=== PATIENT | female | born 1955 | race Caucasian/White ===

== ENCOUNTER 2017-09-12 07:49 | Inpatient (IN) | payer OTHER ==
[~2017-09-12] VITALS: Ht 165.1 cm; Wt 57.6 kg
[2017-09-12 07:55] VITALS: BP 109/60
--- NOTE | 2017-09-12 08:07 | NUR ---
PATIENT PRESENTS TO ED C/O NEAR SYNCOPE, STATED SUDDEN ONSET OF DIZZINESS WHILE IN SHOWER, BRACED FALL USING TOILETTE. PT WITH LACERATION TO LEFT WRIST. DENIES N/V/D; SKIN IS PINK/WARM/DRY; AAOX4. LUNGS CLEAR BL; HR EVEN AND REGULAR; PT DENIES ANY FEVER, CP, SOB, OR COUGH AT THIS TIME; PATIENT STATES PAIN OF 4/10 AT THIS TIME; VSS; PATIENT POSITIONED FOR COMFORT; HOB ELEVATED; BEDRAILS UP X2; BED DOWN. ER MD MADE AWARE OF PT STATUS.
[2017-09-12] MEDS ORDERED: ONDANSETRON 4 MG/2 ML VIAL IVP ONE (08:25)
--- NOTE | 2017-09-12 08:50 | NUR ---
PT TO CT
[2017-09-12 08:57] LABS: BASOPHILS % (AUTO) 0.4 % (0.0-2.0); EOSINOPHILS # (AUTO) 0.1 K/uL (0-0.4); EOSINOPHILS % (AUTO) 0.7 % (0.0-4.0); HEMATOCRIT 44.6 % (36-48); HEMOGLOBIN 14.8 g/dL (12.0-16.0); LYMPHOCYTES # (AUTO) 0.3 K/uL (2.5-16.5); LYMPHOCYTES % (AUTO) 2.8 % (20.5-51.1); MEAN CORPUSCULAR HEMOGLOBIN 31 pg (27-31); MEAN CORPUSCULAR HGB CONC 33 g/dL (33-37); MEAN CORPUSCULAR VOLUME 92.4 fL (80-94); MONOCYTES # (AUTO) 0.4 K/uL (0.8-1.0); MONOCYTES % (AUTO) 3.5 % (1.7-9.3); NEUTROPHILS # (AUTO) 10.5 K/uL (1.8-7.7); NEUTROPHILS % (AUTO) 92.6 % (42.2-75.2); PLATELET COUNT (AUTO) 277 K/uL (140-450); RED BLOOD CELL COUNT(AUTO) 4.83 MIL/uL (4.20-5.40); RED CELL DISTRIBUTION WIDTH 12.6 % (11.6-13.7); WHITE BLOOD COUNT (AUTO) 11.3 K/uL (4.8-10.8)
[2017-09-12 09:01] LABS: APPEARANCE,URINE CLEAR (CLEAR); BILIRUBIN,URINE NEGATIVE (NEGATIVE); BLOOD, URINE NEGATIVE (NEGATIVE); COLOR,URINE YELLOW (YELLOW); LEUKOCYTE ESTERASE ,URINE NEGATIVE (NEGATIVE); NITRITE, URINE NEGATIVE (NEGATIVE); UGLUCOSE NEGATIVE (NEGATIVE)
[2017-09-12 09:08] LABS: BARBITURATE, URINE NEG. ng/ml (NEG <=200); BENZODIAZEPINE, URINE NEG. ng/mL (NEG <=200); CANNABINOID, URINE NEG. ng/mL (NEG <=50); COCAINE, URINE NEG. ng/mL (NEG <=300); OPIATE, URINE NEG. ng/mL (NEG <=2000); PHENCYCLIDINE SCREEN,URINE NEG. ng/mL (NEG <=25)
[2017-09-12 09:14] LABS: ANION GAP 13.9 (8-16); ASPARTATE AMINOTRANSFERASE 17 U/L (15-37); CARBON DIOXIDE 27.8 mmol/L (21-32); CHLORIDE 107 mmol/L (98-107); CREATININE 1.1 mg/dL (0.6-1.3); GFR ARICAN-AMERICAN 65 mL/min (>90); GLUCOSE 120 mg/dL (74-106); POTASSIUM 4.7 mmol/L (3.5-5.1); SODIUM SERUM 144 mmol/L (136-145); TOTAL BILIRUBIN 1.1 mg/dL (0.0-1.0); UREA NITROGEN, BLOOD 26 mg/dL (7-18)
[2017-09-12 09:26] LABS: SALICYLATE < 2.8 mg/dL (2.8-20.0)
[2017-09-12 09:30] LABS: ACETAMINOPHEN < 0.5 ug/ml (10-30)
[2017-09-12] MEDS ORDERED: LIDOCAINE/EPI 1% 1:100000 20 ML VIAL INJ ONE (10:35)
[2017-09-12] MEDS ORDERED: NACL 0.9% 1,000 ML IV ONE (10:45)
[2017-09-12] MEDS ORDERED: METOCLOPRAMIDE 10 MG/2 ML INJ VIAL IVP ONE (10:45)
[2017-09-12] MEDS ORDERED: ONDANSETRON 4 MG/2 ML VIAL IM/IVP PRN (11:25)
[2017-09-12] MEDS ORDERED: ACETAMINOPHEN 325 MG TAB PO PRN (11:25)
[2017-09-12] MEDS ORDERED: DOCUSATE SODIUM 100 MG GELCAP PO PRN (11:25)
[2017-09-12] MEDS ORDERED: LETR2.5T PO (11:26)
[2017-09-12] MEDS ORDERED: ESCI20TA PO (11:26)
[2017-09-12] MEDS ORDERED: CLON1TAB PO (11:26)
[2017-09-12] MEDS ORDERED: DULO30EC PO (11:26)
[2017-09-12] MEDS ORDERED: MECLIZINE 25 MG TAB PO PRN (11:35)
--- NOTE | 2017-09-12 12:05 | NUR ---
PT ARRIVED ON THE UNIT WITH 2 ER NURSES. PT IS AWAKE AND ORIENTED. PT AMBULATED FROM RNEY TO BED. ACCOMPANIED BY SON. PT AMBULATED TO THE BATHROOM. AFTER PULLING UP HER PANTS, SHE STARTED TO BLEED FROM HER STITCHES. RINSED WITH NS AND BLOTTED WITH GAUZE. WRAPPED WITH CLING WRAP. V/S WITHIN NORMAL RANGE. IV ON R HAND 2OG NS INFUSING BOLUS. WILL FINISH THIS BAG AND THEREAFTER NS 100ML/HR. PT ON ROOM AIR. DENIES ANY PAIN AT THIS TIME. SOME NAUSEA. SKIN: LACERATION ON L WRIST ABOUT 3 CM[address] NO LONGER BLEEDING. NSR. ADMINISTERED THE TELE MONITOR. YELLOW SOCKS, YELLOW BAND, AND YELLOW SIGN ON DOOR APPLIED. RED ALLERGY BAND APPLIED. NPO AT THIS TIME. GAVE HER SOME ICE CHIPS. PT THIRSTY. CALLED EVS TO COME CLEAN THE BATHROOM FLOOR. WILL CONTINUE WITH ADMISSION.
--- NOTE | 2017-09-12 12:07 | NUR ---
Patient will be admitted to care of TELE. Will go to [id number]. Belongings list completed. Report to SREEKANTH
[2017-09-12 12:12] LABS: CHOL/HDL RATIO 3.3 (1-4.5); FREE T4 (FREE THYROXINE) 1.23 ng/dL (0.76-1.46); MAGNESIUM 1.8 mg/dL (1.8-2.4); THYROID STIMULATING HORMONE 2.46 uIU/mL (0.34-3.74)
--- NOTE | 2017-09-12 12:20 | NUR ---
U/S TECH IS HERE FOR [facility] U/S.
[2017-09-12 13:00] VITALS: BP 99/62
--- NOTE | 2017-09-12 14:47 | NUR ---
PT SLEEPING SOUNDLY. NO SIGNS OF DISTRESS. WILL CONTINUE TO MONITOR PT.
[2017-09-12 16:00] VITALS: BP 114/63
[2017-09-12] MEDS: NACL 0.9% 1,000 ML IV SCH ×2 (16:24→21:23)
--- NOTE | 2017-09-12 16:25 | NUR ---
ADMINISTERED TYLENOL FOR FEVER 100.6 AND ALVARADO. PT TOLERATED WELL. WILL CONTINUE TO MONITOR PT.
--- NOTE | 2017-09-12 18:49 | NUR ---
BARELY TOUCHED DINNER. C/O ABD PAIN WHEN SHE EATS. DENIES NAUSEA. ALVARADO IS BETTER. FEVER IS DOWN 99.1F. NO COMPLAINTS AT THIS TIME. WILL CONTINUE TO MONITOR PT.
--- NOTE | 2017-09-12 19:30 | NUR ---
RECEIVED PT FROM DAY NURSE, PT IN STABLE CONDITION. NO S/S OF DISTRESS NOTED. RR EVEN/UNLABORED. PT AAOX4, ON RA. IV TO R HAND 22G, PATENT AND INTACT. SKIN WARM AND DRY TO TOUCH. COLOR WNL. PT HAS 6 STITCHES TO L WRIST, GAUZE DRY AND INTACT. INITIAL ASSESSMENT COMPLETED, PLAN OF CARE DISCUSSED WITH PT, PT VERBALIZED UNDERSTANDING. ALL SAFETY PRECAUTIONS MET, CALL LIGHT WITHIN REACH, WILL CONTINUE TO MONITOR.
[2017-09-12 20:00] VITALS: BP 104/57
--- NOTE | 2017-09-12 20:00 | NUR ---
PICTURE OF WRIST AND STITCHES TAKEN, PTS WRIST RE-WRAPPED. NO BLEEDING OR DRAINAGE NOTED
[2017-09-12] MEDS: KETOROLAC 30 MG/ML VIAL IM PRN (20:57)
--- NOTE | 2017-09-12 23:00 | NUR ---
VSS, PT RESTING COMFORTABLY IN BED. NO S/S OF DISTRESS NOTED
[2017-09-13] VITALS: BP 116/62
--- NOTE | 2017-09-13 01:00 | NUR ---
VSS, PT RESTING COMFORTABLY IN BED. NO S/S OF DISTRESS NOTED
--- NOTE | 2017-09-13 03:00 | NUR ---
VSS, PT RESTING COMFORTABLY IN BED. NO S/S OF DISTRESS NOTED
[2017-09-13 04:00] VITALS: BP 102/57
--- NOTE | 2017-09-13 05:00 | NUR ---
PT C/O ABD PAIN AND DIZZINESS, DR. BUITRAGO MADE AWARE
--- NOTE | 2017-09-13 05:15 | NUR ---
DR. BUITRAGO IN TO SEE PT
[2017-09-13 06:20] LABS: T4 (THYROXINE) 7.7 ug/dL (4.5-12.0)
[2017-09-13] MEDS: KETOROLAC 30 MG/ML VIAL IM PRN (06:27)
--- NOTE | 2017-09-13 07:40 | NUR ---
REPORT GIVEN TO DAY NURSE, PT IN STABLE CONDITION NO S/S OF DISTRESS NOTED
--- NOTE | 2017-09-13 07:41 | NUR ---
RECEIVED REPORT FROM THE BARREL STRAIGHTENER NURSE AT BEDSIDE FOR CONTINUITY OF CARE. PT IS AWAKE AND ORIENTED. INTRODUCED MYSELF AND UPDATED THE BOARD. V/S WITHIN NORMAL RANGE. PT C/O ORTHOSTATIC DIZZINESS AND ABD CRAMPING AND PAIN. IV ON R HAND 20G NS AT 1OOML. NS IS ALMOST EMPTY. WILL CHANGE IT OUT WITH MORNING MEDS. L WRIST WRAPPED IN CLING WRAP. LACERATION W/ 6 STITCHES. ASSISTED PT TO THE BATHROOM, WASHED UP AND GOT BACK INTO BED. NO COMPLAINTS AT THIS TIME. ALL NEEDS MET. WILL CONTINUE TO MONITOR PT.
[2017-09-13 08:00] VITALS: BP 105/63
[2017-09-13] MEDS: clonazePAM 0.5 MG TAB PO SCH (09:36)
[2017-09-13] MEDS: ESCITALOPRAM 20 MG TAB PO SCH (09:37)
[2017-09-13] MEDS: DULoxetine 30 MG CAPDR PO SCH (09:37)
[2017-09-13] MEDS: NACL 0.9% 1,000 ML IV SCH (09:38)
--- NOTE | 2017-09-13 09:43 | NUR ---
ADMINISTERED MORNING MEDS. GAVE MECLIZINE FOR DIZZINESS. PT TOLERATED WELL. PT BACK ON THE FLUIDS. [place] [facility]. WILL CONTINUE TO MONITOR PT.
--- NOTE | 2017-09-13 11:45 | NUR ---
PT IS RESTING COMFORTABLY. NO SIGNS OF DISTRESS. WILL CONTINUE TO MONITOR PT.
[2017-09-13 12:00] VITALS: BP 96/59
--- NOTE | 2017-09-13 13:53 | NUR ---
CALLED MILLICENT FROM [facility] SHE SAID FOR TODAY FAX REVIEW TO [phone] PHONE [phone] ON SATURDAY THE CM WILL BE SISI MAYER PHONE [phone] FAX [phone] THE PENDING REF NO IS [id number].
--- NOTE | 2017-09-13 14:30 | NUR ---
PT'S IV WAS COMING OUT. RE-ENFORCED THE DRESSING AND SAVE THE IV. ASSISTED PT TO THE RESTROOM AND BACK TO BED. WILL CONTINUE TO MONITOR PT.
--- NOTE | 2017-09-13 15:01 | NUR ---
PATIENT HAS BEEN SCREENED AND CATEGORIZED LOW NUTRITION RISK. PATIENT WILL BE SEEN WITHIN 7 DAYS OF ADMISSION. 09/19/[address]
--- NOTE | 2017-09-13 15:30 | NUR ---
PT ON THE PHONE. C/O ABDOMINAL CRAMPING AND DISCOMFORT. WILL TALK TO THE DRHeron ABOUT IT. CHECKED THE ROOM OF THE RESIDENTS. NO MDS. WILL KEEP F/U.
[2017-09-13 16:00] VITALS: BP 121/83
[2017-09-13] MEDS ORDERED: SIMETHICONE 80 MG TAB.CHEW PO PRN (16:35)
--- NOTE | 2017-09-13 17:10 | NUR ---
ADMINISTERED MILICON FOR ABD DISCOMFORT. PT TOLERATED WELL. PT ALSO REQUESTED PAIN MED, NORCO. NO NORCO ORDERED. WILL ASK FOR ORDER. PT DOESN'T WANT THE TORADOL.
[2017-09-13] MEDS ORDERED: HYDROcodone/APAP 7.5/325 MG 1 TAB PO PRN (19:05)
--- NOTE | 2017-09-13 19:26 | NUR ---
ENDORSED PT TO THE COAGULATION OPERATOR NURSE AT BEDSIDE FOR CONTINUITY OF CARE. SHE WILL TALK TO THE MD AND WILL GET NEW ORDER FOR NORCO, SOMETHING FOR ABD PAIN, AND ABOUT D/C IVF. PT VOIDED 12 X TODAY. PT IN STABLE CONDITION.
--- NOTE | 2017-09-13 19:28 | NUR ---
RECEIVED REPORT FROM DAY SHIFT NURSE. AAOX4. NO DISTRESS NOTED. PT HAS LEFT WRIST LACERATION WITH 6 STITCHES, OPEN TO AIR, NO BLEEDING NOTED. IV TO RIGHT HAND #20G, NS AT 100ML/HR, INFUSING WELL. DISCUSSED PLAN OF CARE. PT VERBALIZED UNDERSTANDING.
[2017-09-13 20:00] VITALS: BP 124/67
--- NOTE | 2017-09-13 20:45 | NUR ---
PT C/O LEFT WRIST AND ABD PAIN. CALLED PHARMACY RE: NORCO PENDING. PER PHARMACIST PT CANNOT TAKE NORCO BEC OF ALLERGY TO CODEINE. DR. BUITRAGO MADE AWARE AND SHE WILL ORDER ANOTHER MEDS FOR PAIN.
[2017-09-13] MEDS ORDERED: CYCLOBENZAPRINE 10 MG TAB PO ONE (20:50)
--- NOTE | 2017-09-13 23:44 | NUR ---
PT SLEEPING. NO S/S OF PAIN. NO RESP DISTRESS NOTED. SAFETY PRECAUTION IN PLACE. CALL LIGHT WITHIN REACH.
[2017-09-14] VITALS: BP 109/59
[2017-09-14] MEDS ORDERED: DICYCLOMINE 10 MG CAP PO ONE (00:25)
[2017-09-14] MEDS ORDERED: DICYCLOMINE 20 MG/2 ML VIAL IM ONE (01:25)
--- NOTE | 2017-09-14 01:53 | NUR ---
PT C/O ABDOMINAL CRAMPS/PAIN. DR. BUITRAGO MADE AWARE AND ORDERED BENTYL 20 MG IM. MEDICATION GIVEN, PT TOLERATED WELL.
[2017-09-14 04:00] VITALS: BP 112/62
--- NOTE | 2017-09-14 04:30 | NUR ---
PT SLEEPING BUT EASILY AROUSABLE. NO S/S OF PAIN. RESP EVEN AND UNLABORED. CALL LIGHT WITHIN REACH.
--- NOTE | 2017-09-14 07:00 | NUR ---
ENDORSED PT TO DAY SHIFT NURSE. PT IN STABLE CONDITION.
--- NOTE | 2017-09-14 07:05 | NUR ---
RECEIVED REPORT FROM FIXING CARPENTER NURSE, CRISTOFER REGARDING THE PT'S CONDITON. PT IS ASLEEP LYING ON HER LEFT LATERAL SIDE. NO SIGNS OF DISTRESS NOTED AT THIS TIME. WILL CONTINUE TO MONITOR.
--- NOTE | 2017-09-14 07:45 | NUR ---
PT IS AWAKE LYING ON THE BED, WITH RIGHT HAND SALINE LOCK IN PLACE. VITAL SIGNS TAKEN. NO SIGNS OF DISTRESS NOTED AT THIS TIME. CALL LIGHT WITHIN REACH. WILL CONTINUE TO MONITOR.
[2017-09-14 08:00] VITALS: BP 103/65
[2017-09-14] MEDS ORDERED: MECL-272 PO (08:42)
[2017-09-14 08:44] LABS: BASOPHILS % (AUTO) 0.6 % (0.0-2.0); EOSINOPHILS # (AUTO) 0.1 K/uL (0-0.4); EOSINOPHILS % (AUTO) 2.5 % (0.0-4.0); HEMATOCRIT 36.5 % (36-48); HEMOGLOBIN 12.3 g/dL (12.0-16.0); LYMPHOCYTES # (AUTO) 0.8 K/uL (2.5-16.5); LYMPHOCYTES % (AUTO) 22.7 % (20.5-51.1); MEAN CORPUSCULAR HEMOGLOBIN 32 pg (27-31); MEAN CORPUSCULAR HGB CONC 34 g/dL (33-37); MEAN CORPUSCULAR VOLUME 93.1 fL (80-94); MONOCYTES # (AUTO) 0.5 K/uL (0.8-1.0); MONOCYTES % (AUTO) 12.9 % (1.7-9.3); NEUTROPHILS # (AUTO) 2.2 K/uL (1.8-7.7); NEUTROPHILS % (AUTO) 61.3 % (42.2-75.2); PLATELET COUNT (AUTO) 205 K/uL (140-450); RED BLOOD CELL COUNT(AUTO) 3.92 MIL/uL (4.20-5.40); RED CELL DISTRIBUTION WIDTH 12.8 % (11.6-13.7); WHITE BLOOD COUNT (AUTO) 3.7 K/uL (4.8-10.8)
[2017-09-14] MEDS: ESCITALOPRAM 20 MG TAB PO SCH (09:03)
[2017-09-14] MEDS: DULoxetine 30 MG CAPDR PO SCH (09:03)
--- NOTE | 2017-09-14 09:03 | NUR ---
PT IS AWAKE LYING ON THE BED, WITH SALINE LOCK IN PLACE AT RIGHT HAND. MEDICATIONS WERE GIVEN. PT TOLERATED IT. NO SIGNS OF DISTRESS NOTED AT THIS TIME. CALL LIGHT WITHIN REACH. WILL CONTINUE TO MONITOR.
[2017-09-14] MEDS: clonazePAM 0.5 MG TAB PO SCH (09:04)
[2017-09-14 09:07] LABS: ANION GAP 11.8 (8-16); CREATININE 0.8 mg/dL (0.6-1.3); POTASSIUM 3.8 mmol/L (3.5-5.1)
[2017-09-14 09:28] LABS: MAGNESIUM 1.7 mg/dL (1.8-2.4); PHOSPHORUS 3.6 mg/dL (2.5-4.9)
--- NOTE | 2017-09-14 10:30 | NUR ---
PT IS AWAKE SEATED ON THE BED. NO SIGNS OF DISTRESS NOTED AT THIS TIME. CALL LIGHT WITHIN REACH. WILL CONTINUE TO MONITOR.
[2017-09-14] MEDS ORDERED: SIME80CT70 PO (11:00)
--- NOTE | 2017-09-14 11:01 | NUR ---
DISCHARGE ORDER FOR THE PATIENT WAS PLACED, WILL FACILITATE DISCHARGE PROCESS.
--- NOTE | 2017-09-14 12:20 | NUR ---
PT WAS DISCHARGED WITH THE SISTER, PT REFUSED TO RIDE IN THE WHEELCHAIR BUT INSTEAD, PT WANTS TO WALK WITH THE SISTER IN GOING OUT OF THE HOSPITAL. PT IS ALERT AND IN STABLE CONDITION AND NO SIGNS OF DISTRESS NOTED.
--- NOTE | 2017-09-16 15:22 | NUR ---
CM NOTE DISCHARGE SUMMARY FAXED TO [facility] / FAX# [phone]
== END 2017-09-14 12:20 | disposition home or self-care (01) | DRG 73 ==
LOC: MED 07:49 → MTU 11:31
PROVIDERS: ADMIT Family Medicine Sports Medicine; ATTEND Family Medicine Sports Medicine
PROC: 0HQEXZZ Repair Left Lower Arm Skin, External Approach (ICD-10-PCS; principal; 2017-09-12)
PROC: 3E0234Z Introduction of Serum, Toxoid and Vaccine into Muscle, Percutaneous Approach (ICD-10-PCS; 2017-09-12)
DX: G90.9 Disorder of the autonomic nervous system, unspecified (principal); N17.0 Acute kidney failure with tubular necrosis; F41.9 Anxiety disorder, unspecified; Z85.3 Personal history of malignant neoplasm of breast; Z88.5 Allergy status to narcotic agent; Z88.8 Allergy status to other drugs, medicaments and biological substances; F32.9 Major depressive disorder, single episode, unspecified; S61.512A Laceration without foreign body of left wrist, initial encounter; X58.XXXA Exposure to other specified factors, initial encounter; Y93.89 Activity, other specified; Y92.89 Other specified places as the place of occurrence of the external cause; Y99.8 Other external cause status; Z90.12 Acquired absence of left breast and nipple; F17.210 Nicotine dependence, cigarettes, uncomplicated; Z23 Encounter for immunization; Z79.899 Other long term (current) drug therapy
CPT/HCPCS: 36415; 70450; 71045; 80048; 80053; 80305; 81003; 82150; 82550; 83036; 83605; 83690; 83735; 83880; 84100; 84436; 84439; 84443; 84479; 84484; 85025; 85610; 85730; 87040; 87081; 90471; 90715; 93880; 96374; 96375; 99285; G0480; G0482; J0500; J1885; J2001; J2405; J2765; J7030; J8597; Q0092